=== PATIENT | female | born 1955 | race Caucasian/White ===

== ENCOUNTER 2019-09-04 15:54 | Emergency (ER) | payer SELFPAY ==
[2019-09-04] MEDS ORDERED: OXYMETAZOLINE HCL 0.05% NASAL SPRAY 15 ML BOTTLE NASL ONE (17:27)
[2019-09-04 17:39] LABS: APPEARANCE,URINE SLIGHTLY-CLOUDY; BILIRUBIN,URINE NEGATIVE (NEGATIVE); COLOR,URINE YELLOW; GLUCOSE, URINE >=500 mg/dL (NEGATIVE); KETONES,URINE 20 mg/dL (NEGATIVE); LEUKOCYTE ESTERASE,URINE SMALL (NEGATIVE); NITRITE,URINE NEGATIVE (NEGATIVE); PROTEIN,URINE 30 mg/dL (NEGATIVE); URINE SPECIFIC GRAVITY 1.013; UROBILINOGEN,URINE NEGATIVE mg/dL (<2.0)
[2019-09-04 19:33] VITALS: BP 134/101
--- NOTE | 2019-09-06 13:29 | ER Document Report ---
Entered by GWEN GARZA SCRIBE 09/04/19 5317 Acting as scribe for:BELKYS NAYLOR MD ED General - General Chief Complaint: Nose Bleed Stated Complaint: NOSE BLEED Time Seen by Provider: 09/04/19 17:11 Primary Care Provider: SHELBI CROW PA [Primary Care Provider] - Follow up in 3-5 days Mode of Arrival: Ambulatory Information source: Patient Notes: This 64 year old female patient presents to the emergency department today with complaints of a nose bleed prior to arrival. Patient states she felt lightheaded and dizzy after exiting her bathroom at home and then fell. Patient states she was helped up by her daughter and neighbor, then her right nostril began to bleed. Patient states she also had a nose bleed this morning, but it was not as bad as the second one today. Patient states her sugar was high and reports a history of diabetes, which she is on medications for. Patient states this is the first time something like this has happened. The patient uses a walker at home, and her daughter helps her get around. She states she does check her sugars and they have been running over 200 recently. EMS reports her blood sugar was 324 when they checked it. The patient reports her first needed nosebleed was at 1030 this morning and it was on a very little coming out of the right side. About 3:30 PM today, after a neighbor and her daughter helped her get back up in to her room, she reported she had more bleeding from the right nostril. She does have some small scattered blood droplets soaked into her shirt and pants. She does report that the bleeding the second time was a little more than it was the first time, but does not sound like she had significant nosebleeding. When asked about past medical history, including blood pressure, she states that she does not have high blood pressure. She also states that she is not on any medication for high blood pressure. Her pressure is noted to be a little elevated today. TRAVEL OUTSIDE OF THE [place] IN LAST 30 DAYS: No - Related Data Allergies/Adverse Reactions: No Known Allergies Allergy (Unverified 11/04/14 13:21) Past Medical History - General Information source: Patient - Social History Smoking Status: Never Smoker Cigarette use (# per day): No Frequency of alcohol use: None Family History: Reviewed & Not Pertinent - Past Medical History Cardiac Medical History: Reports: Hx Hypertension Endocrine Medical History: Reports: Hx Diabetes Mellitus Type 2 - on meds Past Surgical History: Reports: Hx Section, Hx Cholecystectomy, Hx Gynecologic Surgery - endometreal ablation Review of Systems - Review of Systems Constitutional: No symptoms reported EENT: See HPI, Other - Nose bleed x2 Cardiovascular: See HPI, Dizziness, Lightheaded Respiratory: No symptoms reported Gastrointestinal: No symptoms reported Genitourinary: No symptoms reported Female Genitourinary: No symptoms reported Musculoskeletal: No symptoms reported Skin: No symptoms reported Hematologic/Lymphatic: No symptoms reported Neurological/Psychological: No symptoms reported -: Yes All other systems reviewed and negative Physical Exam - General General appearance: Appears well, Alert - HEENT Head: Normocephalic, Atraumatic Eyes: Normal Pupils: PERRL Notes: The lateral mucous membrane 1 cm in the right nostril is very raw with fresh blood/clots. Not actively bleeding. - Respiratory Respiratory status: No respiratory distress Chest status: Nontender Breath sounds: Normal Chest palpation: Normal - Cardiovascular Rhythm: Regular Heart sounds: Normal auscultation Murmur: No - Abdominal Inspection: Normal - Soft Distension: No distension Bowel sounds: Normal Tenderness: Nontender - Extremities General upper extremity: Normal inspection. No: Edema General lower extremity: Normal inspection. No: Edema - Neurological Neuro grossly intact: Yes Cognition: Normal Orientation: AAOx4 Speech: Normal - Psychological Associated symptoms: Normal affect, Normal mood - Skin Skin Temperature: Warm Skin Moisture: Dry Skin Color: Normal Course - Laboratory Laboratory results interpreted by me: 09/04/19 16:55 Urine Protein 30 H Urine Glucose (UA) >=500 H Urine Ketones 20 H Urine Blood SMALL H Ur Leukocyte Esterase SMALL H Discharge - Discharge Clinical Impression: Nosebleed Condition: Stable Disposition: HOME, SELF-CARE Additional Instructions: Nosebleed Instructions There is a significant chance of re-bleeding following a nosebleed. Proper care makes this less likely. Do not touch the nose for 24 hours. Do not blow the nose forcefully for one week. After 24 hours, gently apply Vaseline ointment to both nostrils with the tip of a finger, three times a day, for one week. It's normal to have a bloody mucous discharge for a few days. If active bleeding recurs, blow all the blood from the nose, then sit quietly and pinch the nose as firmly as possible for 10 minutes. If this does not stop the bleeding, return for further care. If packing was left in the nose and it starts to come out of the nostril, either tuck it back in or cut it off. Don't pull it out. Return for recheck and removal of the packing when instructed. Persons with frequent nosebleeds should avoid aspirin (unless prescribed for another reason). Humidity in the bedroom, and petroleum jelly applied to the nostrils at night may help. Remove the Afrin soaked cotton ball from your nose about 7 PM this evening. Then place some Vaseline ointment or bacitracin ointment in the nostril and sniff it up into your nose. If the bleeding returns, keep your head back, spraying stream of the Afrin nose spray into your nose and pinch off your nostrils. Then place another cottonball which is moistened with Afrin nose spray and leave it in for least 1 hour before removing it. If the bleeding continues, then return to the emergency room. Your blood pressure was a little elevated when you came here today. You are also spilling a large amount of sugar in your urine today. You should follow-up with your primary care provider this week to check your blood pressure and your blood sugars. RETURN TO THE EMERGENCY ROOM IF ANY NEW OR WORSENING SYMPTOMS. Referrals: SHELBI CROW PA [Primary Care Provider] - Follow up in 3-5 days I personally performed the services described in the documentation, reviewed and edited the documentation which was dictated to the scribe in my presence, and it accurately records my words and actions.
== END 2019-09-04 19:33 | disposition home or self-care (01) ==
LOC: ER 15:54
DX: R04.0 Epistaxis (principal); W19.XXXA Unspecified fall, initial encounter; Y92.002 Bathroom of unspecified non-institutional (private) residence as the place of occurrence of the external cause; I10 Essential (primary) hypertension; E11.9 Type 2 diabetes mellitus without complications; Z79.84 Long term (current) use of oral hypoglycemic drugs
CPT/HCPCS: 99283; 81001; J3490